=== PATIENT | female | born 1990 | race Caucasian/White ===

== ENCOUNTER 2017-12-24 23:38 | Emergency (ER) | payer MEDICAID, OTHER ==
[~2017-12-24] VITALS: Ht 157.5 cm; Wt 80.0 kg
[2017-12-25 02:46] LABS: BASOPHILS % 0.6 % (0.0-2.0); EOSINOPHILS % 1.4 % (0.0-5.0); HEMATOCRIT. 38.6 % (36.0-48.0); HEMOGLOBIN. 13.2 g/dL (12.0-16.0); LYMPHOCYTES % 28.4 % (20.0-50.0); MEAN CORPUSCULAR HEMOGLOBIN 30.5 pg (28.0-32.0); MEAN PLATELET VOLUME 9.1 fl (7.4-10.4); MONOCYTES % 9.9 % (2.0-8.0); NEUTROPHILS % 59.7 % (40.0-76.0); PLATELET 246 x1000/uL (130-400); RED BLOOD CELL COUNT 4.33 mill/uL (4.2-5.4); RED CELL DISTRIBUTION WIDTH 13.2 % (11.6-14.6)
[2017-12-25 02:51] LABS: CHLORIDE 105 mEq/L (98-107)
[2017-12-25 04:18] LABS: CLARITY URINE CLEAR (CLEAR); COLOR URINE YELLOW (YELLOW); KETONES URINE NEGATIVE (NEGATIVE); LEUKOCYTE ESTERASE URINE NEGATIVE (NEGATIVE); NITRITE URINE NEGATIVE (NEGATIVE); OCCULT BLOOD URINE NEGATIVE (NEGATIVE); PROTEIN URINE NEGATIVE (NEGATIVE); SPECIFIC GRAVITY URINE 1.028 (1.005-1.030)
[2017-12-25 05:37] VITALS: BP 126/80
== END 2017-12-25 05:48 | disposition home or self-care (01) ==
LOC: ER 12-25 00:02
DX: R53.1 Weakness (principal); M79.1 Myalgia; Z88.5 Allergy status to narcotic agent; Z98.890 Other specified postprocedural states
CPT/HCPCS: 36415; 71045; 80053; 81003; 81025; 83880; 84443; 84484; 85025; 93005; 99285

== ENCOUNTER 2019-03-14 12:00 | Emergency (ER) | payer MEDICAID ==
[~2019-03-14] VITALS: Ht 154.9 cm; Wt 80.0 kg
[2019-03-14] MEDS ORDERED: MECLIZINE 25MG TABLET PO STA (12:41)
[2019-03-14] MEDS ORDERED: SODIUM CHLORIDE 0.9% 1,000 ML IV ONE (12:45)
[2019-03-14] MEDS ORDERED: KETOROLAC 30MG/ML VIAL IV ONE (12:45)
[2019-03-14 13:14] LABS: CLARITY URINE CLOUDY (CLEAR); COLOR URINE YELLOW (YELLOW); KETONES URINE NEGATIVE (NEGATIVE); LEUKOCYTE ESTERASE URINE NEGATIVE (NEGATIVE); NITRITE URINE NEGATIVE (NEGATIVE); OCCULT BLOOD URINE TRACE (NEGATIVE); PH URINE 6.5 (4.5-8.0); PROTEIN URINE NEGATIVE (NEGATIVE); SPECIFIC GRAVITY URINE 1.033 (1.005-1.030); UROBILINOGEN URINE 0.2 E.U./dL (0.2-1.0)
[2019-03-14 13:17] LABS: CHLORIDE 106 mEq/L (98-107)
[2019-03-14 13:19] LABS: BASOPHILS % 0.5 % (0.0-2.0); EOSINOPHILS % 1.2 % (0.0-5.0); HEMATOCRIT. 39.1 % (36.0-48.0); HEMOGLOBIN. 13.8 g/dL (12.0-16.0); MEAN CORPUSCULAR HEMOGLOBIN 31.5 pg (28.0-32.0); MEAN CORPUSCULAR VOLUME 89.5 fL (81.0-99.0); MEAN PLATELET VOLUME 9.1 fl (7.4-10.4); MONOCYTES % 8.2 % (2.0-8.0); NEUTROPHILS % 57.1 % (40.0-76.0); PLATELET 234 x1000/uL (130-400); RED BLOOD CELL COUNT 4.37 mill/uL (4.2-5.4); RED CELL DISTRIBUTION WIDTH 13.2 % (11.6-14.6)
[2019-03-14 15:10] VITALS: BP 100/65
== END 2019-03-14 15:12 | disposition home or self-care (01) ==
LOC: ER 12:00
DX: M54.5 Low back pain (principal); R42 Dizziness and giddiness; E78.00 Pure hypercholesterolemia, unspecified; Z88.5 Allergy status to narcotic agent; Z98.890 Other specified postprocedural states; Z82.49 Family history of ischemic heart disease and other diseases of the circulatory system
CPT/HCPCS: 36415; 80048; 81003; 81025; 85025; 93005; 96361; 96374; 99284; J1885; J7030; J8597

== ENCOUNTER 2019-09-23 09:22 | Emergency (ER) | payer MEDICAID ==
[~2019-09-23] VITALS: Ht 160 cm; Wt 70.0 kg
[2019-09-23 10:14] VITALS: BP 110/86
[2019-09-23] MEDS ORDERED: ONDANSETRON 4MG ODT PO STA (11:45)
[2019-09-23] MEDS ORDERED: NAPROXEN 250MG TABLET PO ONE (11:45)
[2019-09-23 12:17] LABS: BASOPHILS % 0.6 % (0.0-2.0); EOSINOPHILS % 0.5 % (0.0-5.0); HEMATOCRIT. 41.2 % (36.0-48.0); HEMOGLOBIN. 14.1 g/dL (12.0-16.0); LYMPHOCYTES % 30.6 % (20.0-50.0); MEAN CORPUSCULAR VOLUME 90.4 fL (81.0-99.0); MEAN PLATELET VOLUME 9.3 fl (7.4-10.4); NEUTROPHILS % 59.3 % (40.0-76.0); PLATELET 276 x1000/uL (130-400); RED BLOOD CELL COUNT 4.56 mill/uL (4.2-5.4); RED CELL DISTRIBUTION WIDTH 13.3 % (11.6-14.6)
[2019-09-23 12:26] LABS: CHLORIDE 106 mEq/L (98-107)
[2019-09-23 12:27] LABS: CLARITY URINE CLEAR (CLEAR); COLOR URINE YELLOW (YELLOW); KETONES URINE NEGATIVE (NEGATIVE); LEUKOCYTE ESTERASE URINE NEGATIVE (NEGATIVE); NITRITE URINE NEGATIVE (NEGATIVE); OCCULT BLOOD URINE NEGATIVE (NEGATIVE); PROTEIN URINE NEGATIVE (NEGATIVE); SPECIFIC GRAVITY URINE 1.019 (1.005-1.030); UROBILINOGEN URINE 0.2 E.U./dL (0.2-1.0)
[2019-09-23 12:43] LABS: *AMPHETAMINES SCREEN URINE NEGATIVE (NEGATIVE); *BARBITURATES SCREEN URINE NEGATIVE (NEGATIVE); *BENZODIAZEPINES SCREEN URINE NEGATIVE (NEGATIVE); *COCAINE SCREEN URINE NEGATIVE (NEGATIVE); METHADONE URINE SCREEN NEGATIVE (NEGATIVE); OPIATES URINE SCREEN NEGATIVE (NEGATIVE)
[2019-09-23 12:44] LABS: CANNABINOID URINE SCREEN NEGATIVE (NEGATIVE); PHENCYCLIDINE URINE SCREEN NEGATIVE (NEGATIVE)
== END 2019-09-23 13:49 | disposition home or self-care (01) ==
LOC: ER 09:22
DX: R51 Headache (principal); I10 Essential (primary) hypertension; Z88.6 Allergy status to analgesic agent
CPT/HCPCS: 36415; 80048; 80305; 81003; 81025; 85025; 99283; Q0162

== ENCOUNTER 2020-12-18 10:56 | Emergency (ER) | payer MEDICAID ==
[~2020-12-18] VITALS: Ht 152.4 cm; Wt 78.0 kg
[2020-12-18 10:59] VITALS: BP 122/69
[2020-12-18] MEDS ORDERED: IBUPROFEN 600MG TABLET PO ONE (12:45)
[2020-12-18 14:43] LABS: CLARITY URINE CLEAR (CLEAR); COLOR URINE YELLOW (YELLOW); KETONES URINE NEGATIVE (NEGATIVE); LEUKOCYTE ESTERASE URINE NEGATIVE (NEGATIVE); NITRITE URINE NEGATIVE (NEGATIVE); OCCULT BLOOD URINE NEGATIVE (NEGATIVE); PH URINE 7.5 (4.5-8.0); PROTEIN URINE NEGATIVE (NEGATIVE); SPECIFIC GRAVITY URINE 1.025 (1.005-1.030); UROBILINOGEN URINE 0.2 E.U./dL (0.2-1.0)
[2020-12-18] MEDS ORDERED: NAPR-681 MT (15:19)
== END 2020-12-18 15:44 | disposition home or self-care (01) ==
LOC: ER 10:56
DX: G89.29 Other chronic pain (principal); M54.5 Low back pain; E78.00 Pure hypercholesterolemia, unspecified; Z88.6 Allergy status to analgesic agent; Z98.890 Other specified postprocedural states
CPT/HCPCS: 72100; 81003; 81025; 99284; Z7610

== ENCOUNTER 2021-06-10 12:48 | Emergency (ER) | payer MEDICAID ==
[~2021-06-10] VITALS: Ht 157.5 cm; Wt 77.0 kg
[~2021-06-10 12:48] MED LIST: NAPR-681 MT
[2021-06-10 14:50] VITALS: BP 116/80
== END 2021-06-10 14:51 | disposition home or self-care (01) ==
LOC: ER 12:48
DX: S63.91XA Sprain of unspecified part of right wrist and hand, initial encounter (principal); Z88.5 Allergy status to narcotic agent; Z98.890 Other specified postprocedural states; Y07.01 Husband, perpetrator of maltreatment and neglect; Y08.89XA Assault by other specified means, initial encounter; Y93.89 Activity, other specified; Y92.018 Other place in single-family (private) house as the place of occurrence of the external cause
CPT/HCPCS: 73090; 73130; 99284

== ENCOUNTER 2023-03-25 18:36 | Emergency (ER) | payer MEDICAID, OTHER ==
[~2023-03-25] VITALS: Ht 165.1 cm; Wt 78.0 kg
[2023-03-25 18:59] VITALS: O2SAT 100
[2023-03-25 19:31] LABS: BASOPHILS % 0.7 % (0.0-2.0); EOSINOPHILS % 3.4 % (0.0-5.0); HEMOGLOBIN. 12.8 g/dL (12.0-16.0); LYMPHOCYTES % 31.8 % (20.0-50.0); MEAN CORPUSCULAR HEMOGLOBIN 31.1 pg (28.0-32.0); MEAN CORPUSCULAR HGB CONC 34.5 g/dL (31.0-37.0); MEAN CORPUSCULAR VOLUME 90.1 fL (81.0-99.0); MEAN PLATELET VOLUME 9.6 fl (7.4-10.4); MONOCYTES % 9.5 % (2.0-8.0); NEUTROPHILS % 54.6 % (40.0-76.0); PLATELET 257 x1000/uL (130-400); RED CELL DISTRIBUTION WIDTH 13.3 % (11.6-14.6); WHITE BLOOD COUNT 6.8 x1000/uL (4.5-11.0)
[2023-03-25 19:43] LABS: CHLORIDE 108 mEq/L (98-107); INDEX HEMOLYSI 1 (1-3); INDEX ICTERIC 1 (1-4); INDEX LIPEMIC 1 (1-3); SODIUM 138 mEq/L (136-145)
[2023-03-25 19:51] LABS: ALANINE AMINOTRANSFERASE 40 IU/L (13-61); ALBUMIN 3.9 g/dL (3.4-5.0); ASPARTATE AMINOTRANSFERASE 22 IU/L (15-37); BILIRUBIN TOTAL 0.3 mg/dL (0.1-1.0); CALCIUM 9.2 mg/dL (8.5-10.1); CARBON DIOXIDE 26 mEq/L (21-32); CREATININE 0.6 mg/dL (0.6-1.3); GLUCOSE 107 mg/dL (70-105); PROTEIN TOTAL 7.6 g/dL (6.0-8.3); UREA NITROGEN BLOOD 15 mg/dL (7-21)
[2023-03-25 23:51] LABS: HCG SCREEN NEGATIVE
[2023-03-26 00:28] LABS: CLARITY URINE CLEAR (CLEAR); COLOR URINE YELLOW (YELLOW); GLUCOSE URINE NEGATIVE (NEGATIVE); KETONES URINE NEGATIVE (NEGATIVE); LEUKOCYTE ESTERASE URINE NEGATIVE (NEGATIVE); NITRITE URINE NEGATIVE (NEGATIVE); OCCULT BLOOD URINE NEGATIVE (NEGATIVE); PROTEIN URINE NEGATIVE (NEGATIVE); SPECIFIC GRAVITY URINE 1.026 (1.005-1.030)
[2023-03-26 01:25] VITALS: BP 119/78; PULSE 82; RESP 14; TEMP 98.2
== END 2023-03-26 01:34 | disposition home or self-care (01) ==
LOC: ER 18:36
DX: B34.9 Viral infection, unspecified (principal); Z88.5 Allergy status to narcotic agent
CPT/HCPCS: 36415; 80053; 81003; 84703; 85025; 93005; 99284

== ENCOUNTER 2023-05-09 12:45 | Emergency (ER) | payer MEDICAID, OTHER ==
[~2023-05-09] VITALS: Ht 160 cm; Wt 65.0 kg
[2023-05-09 12:54] VITALS: O2SAT 100
[2023-05-09] MEDS ORDERED: LIDOCAINE HCL/EPINEPHRINE 1%-EPI 1:100,000 20 ML VIAL INFIL ONE (13:00)
[2023-05-09] MEDS ORDERED: BACITRACIN ZINC OINT UDPKT TOP ONE (13:00)
[2023-05-09] MEDS ORDERED: HYDROCODONE/ACETAMINOPHEN 5/325MG TABLET PO ONE (13:00)
[2023-05-09] MEDS ORDERED: TETANUS, DIPHTHERIA, PERTUSSIS VAC/PF 0.5ML (>10YR OLD) IM ONE (13:00)
[2023-05-09] MEDS ORDERED: CEPH500T MT (14:39)
[2023-05-09] MEDS ORDERED: IBUP-2029 MT (14:39)
[2023-05-09 15:21] VITALS: BP 111/68; PULSE 68; RESP 16; TEMP 98.5
== END 2023-05-09 15:24 | disposition home or self-care (01) ==
LOC: ER 12:45
DX: S61.411A Laceration without foreign body of right hand, initial encounter (principal); Z98.890 Other specified postprocedural states; W26.8XXA Contact with other sharp object(s), not elsewhere classified, initial encounter; Y93.89 Activity, other specified; Y92.89 Other specified places as the place of occurrence of the external cause; Y99.8 Other external cause status
CPT/HCPCS: 90715; 12002; 90471; 99283; J3490; Z7610

== ENCOUNTER 2024-03-12 03:39 | Emergency (ER) | payer MEDICAID, OTHER ==
[~2024-03-12] VITALS: Ht 157.5 cm; Wt 81.0 kg
[~2024-03-12 03:39] MED LIST changes: +CEPH500T MT; +IBUP-2029 MT
[2024-03-12 03:41] VITALS: O2SAT 98
[2024-03-12 04:33] LABS: BASOPHILS % 0.8 % (0.0-2.0); EOSINOPHILS % 1.7 % (0.0-5.0); HEMATOCRIT. 38.3 % (36.0-48.0); HEMOGLOBIN. 12.9 g/dL (12.0-16.0); LYMPHOCYTES % 33.8 % (20.0-50.0); MEAN CORPUSCULAR HGB CONC 33.6 g/dL (31.0-37.0); MEAN CORPUSCULAR VOLUME 92.3 fL (81.0-99.0); MEAN PLATELET VOLUME 8.5 fl (7.4-10.4); MONOCYTES % 7.6 % (2.0-8.0); NEUTROPHILS % 56.1 % (40.0-76.0); PLATELET 294 x1000/uL (130-400); RED BLOOD CELL COUNT 4.14 mill/uL (4.2-5.4); RED CELL DISTRIBUTION WIDTH 13.1 % (11.6-14.6)
[2024-03-12] MEDS: KETOROLAC 30MG/ML VIAL IV STA (04:35)
[2024-03-12 04:46] LABS: CHLORIDE 106 mEq/L (98-107); POTASSIUM 3.5 mEq/L (3.5-5.1)
[2024-03-12 04:47] LABS: SODIUM 137 mEq/L (136-145)
[2024-03-12 04:48] LABS: CALCIUM 9.2 mg/dL (8.7-10.4); CARBON DIOXIDE 24 mEq/L (21-32)
[2024-03-12 04:53] LABS: CREATININE 0.6 mg/dL (0.6-1.0); GLUCOSE 99 mg/dL (70-105); UREA NITROGEN BLOOD 17 mg/dL (9-23)
[2024-03-12 04:55] LABS: TROPONIN I HIGH SENSITIVITY < 4 ng/L (3.0-34)
[2024-03-12 05:02] LABS: HCG SCREEN NEGATIVE
[2024-03-12 06:39] VITALS: TEMP 98.2
[2024-03-12] MEDS ORDERED: KETOROLAC 30MG/ML VIAL IV NR (06:45)
[2024-03-12 07:52] LABS: TROPONIN I HIGH SENSITIVITY < 4 ng/L (3.0-34)
[2024-03-12 08:20] VITALS: BP 127/87; PULSE 70; RESP 14
== END 2024-03-12 08:43 | disposition home or self-care (01) ==
LOC: ER 03:39
DX: M94.0 Chondrocostal junction syndrome [Tietze] (principal); Z98.890 Other specified postprocedural states
CPT/HCPCS: 80048; 84703; 85025; 85379; 84484; 36415; 71045; 99284; Z7610

== ENCOUNTER 2024-05-01 23:45 | Emergency (ER) | payer MEDICAID ==
[~2024-05-01] VITALS: Ht 154.9 cm; Wt 80.0 kg
[2024-05-02 00:26] VITALS: O2SAT 100
[2024-05-02 00:46] LABS: BASOPHILS % 0.4 % (0.0-2.0); HEMATOCRIT. 38.3 % (36.0-48.0); HEMOGLOBIN. 13.1 g/dL (12.0-16.0); LYMPHOCYTES % 30.4 % (20.0-50.0); MEAN CORPUSCULAR HEMOGLOBIN 31.7 pg (28.0-32.0); MEAN CORPUSCULAR HGB CONC 34.3 g/dL (31.0-37.0); MEAN CORPUSCULAR VOLUME 92.4 fL (81.0-99.0); MEAN PLATELET VOLUME 8.8 fl (7.4-10.4); MONOCYTES % 7.8 % (2.0-8.0); NEUTROPHILS % 60.4 % (40.0-76.0); PLATELET 305 x1000/uL (130-400); RED BLOOD CELL COUNT 4.14 mill/uL (4.2-5.4); RED CELL DISTRIBUTION WIDTH 13.3 % (11.6-14.6); WHITE BLOOD COUNT 8.6 x1000/uL (4.5-11.0)
[2024-05-02 00:47] LABS: CLARITY URINE CLEAR (CLEAR); COLOR URINE YELLOW (YELLOW); GLUCOSE URINE NEGATIVE (NEGATIVE); KETONES URINE NEGATIVE (NEGATIVE); LEUKOCYTE ESTERASE URINE NEGATIVE (NEGATIVE); NITRITE URINE NEGATIVE (NEGATIVE); OCCULT BLOOD URINE NEGATIVE (NEGATIVE); PH URINE 5.5 (4.5-8.0); PROTEIN URINE NEGATIVE (NEGATIVE); SPECIFIC GRAVITY URINE 1.034 (1.005-1.030); UROBILINOGEN URINE 0.2 E.U./dL (0.2-1.0)
[2024-05-02 00:51] LABS: CARBON DIOXIDE 26 mEq/L (21-32); CHLORIDE 106 mEq/L (98-107); POTASSIUM 3.5 mEq/L (3.5-5.1); SODIUM 138 mEq/L (136-145)
[2024-05-02 00:52] LABS: CALCIUM 9.8 mg/dL (8.7-10.4)
[2024-05-02 00:56] LABS: CREATININE 0.7 mg/dL (0.6-1.0)
[2024-05-02 00:57] LABS: GLUCOSE 93 mg/dL (70-105); UREA NITROGEN BLOOD 16 mg/dL (9-23)
[2024-05-02 00:58] LABS: ALANINE AMINOTRANSFERASE 49 IU/L (10-49); ASPARTATE AMINOTRANSFERASE 30 IU/L (<34)
[2024-05-02 00:59] LABS: BILIRUBIN DIRECT 0.1 mg/dL (<=3.0); BILIRUBIN TOTAL 0.5 mg/dL (0.1-1.0)
[2024-05-02 01:04] LABS: HCG SCREEN NEGATIVE
[2024-05-02] MEDS: ONDANSETRON 4MG ODT PO ONE (01:40)
[2024-05-02] MEDS: MAGNESIUM/ALUMINUM HYDROXIDE/SIMETHICONE 30ML UDC PO ONE (01:40)
[2024-05-02] MEDS ORDERED: NAPR-1176 MT (02:40)
[2024-05-02 03:00] VITALS: BP 117/68; PULSE 69; RESP 16; TEMP 36.61404; O2SAT 99
== END 2024-05-02 03:49 | disposition home or self-care (01) ==
LOC: ER 23:45
DX: R19.7 Diarrhea, unspecified (principal); E78.00 Pure hypercholesterolemia, unspecified; F41.9 Anxiety disorder, unspecified; Z88.5 Allergy status to narcotic agent; Z98.890 Other specified postprocedural states
CPT/HCPCS: 99284; 74176; 80076; 80048; 81003; 84703; 83690; 85025; 36415; Q0162

== ENCOUNTER 2024-07-27 18:01 | Emergency (ER) | payer MEDICAID ==
[~2024-07-27] VITALS: Ht 154.9 cm; Wt 77.0 kg
[~2024-07-27 18:01] MED LIST changes: +NAPR-1176 MT
[2024-07-27 18:03] VITALS: O2SAT 98
[2024-07-27 18:07] VITALS: BP 150/87; PULSE 90; RESP 16; TEMP 98.6; O2SAT 100
[2024-07-27 19:57] LABS: CHLORIDE 104 mEq/L (98-107); HEMATOCRIT 41.3 % (36.0-48.0); HEMOGLOBIN 13.7 g/dL (12.0-16.0); MEAN CORPUSCULAR HEMOGLOBIN 30.9 pg (28.0-32.0); MEAN CORPUSCULAR HGB CONC 33.3 g/dL (31.0-37.0); MEAN CORPUSCULAR VOLUME 92.9 fL (81.0-99.0); PLATELET 314 x1000/uL (130-400); POTASSIUM 3.9 mEq/L (3.5-5.1); RED BLOOD CELL COUNT 4.44 mill/uL (4.2-5.4); RED CELL DISTRIBUTION WIDTH 13.4 % (11.6-14.6); SODIUM 137 mEq/L (136-145); WHITE BLOOD COUNT 10.3 x1000/uL (4.5-11.0)
[2024-07-27 19:58] LABS: CALCIUM 9.8 mg/dL (8.7-10.4); CARBON DIOXIDE 23 mEq/L (21-32)
[2024-07-27 20:03] LABS: CREATININE 0.9 mg/dL (0.6-1.0); GLUCOSE 93 mg/dL (70-105); UREA NITROGEN BLOOD 14 mg/dL (9-23)
[2024-07-27 20:24] LABS: CLARITY URINE CLEAR (CLEAR); COLOR URINE YELLOW (YELLOW); GLUCOSE URINE NEGATIVE (NEGATIVE); KETONES URINE NEGATIVE (NEGATIVE); LEUKOCYTE ESTERASE URINE NEGATIVE (NEGATIVE); NITRITE URINE NEGATIVE (NEGATIVE); OCCULT BLOOD URINE NEGATIVE (NEGATIVE); PH URINE 6.5 (4.5-8.0); PROTEIN URINE NEGATIVE (NEGATIVE); SPECIFIC GRAVITY URINE 1.005 (1.005-1.030); UROBILINOGEN URINE 0.2 E.U./dL (0.2-1.0)
[2024-07-27] MEDS: KETOROLAC 15MG/ML VIAL IV ONE (20:40)
[2024-07-27] MEDS ORDERED: IBUP-2029 MT (20:45)
== END 2024-07-27 22:32 | disposition home or self-care (01) ==
LOC: ER 18:01
DX: M25.562 Pain in left knee (principal); M25.561 Pain in right knee; M79.641 Pain in right hand; M79.642 Pain in left hand; M25.521 Pain in right elbow; M25.522 Pain in left elbow; E78.00 Pure hypercholesterolemia, unspecified; I10 Essential (primary) hypertension; Z79.1 Long term (current) use of non-steroidal anti-inflammatories (NSAID); Z88.5 Allergy status to narcotic agent
CPT/HCPCS: 36415; 80048; 81003; 81025; 82330; 85027; 99283

== ENCOUNTER 2024-11-03 14:33 | Emergency (ER) | payer MEDICAID ==
[~2024-11-03] VITALS: Ht 162.6 cm; Wt 60.0 kg
[2024-11-03 14:35] VITALS: BP 129/71; PULSE 98; RESP 18; TEMP 36.6; O2SAT 98
[2024-11-03 16:16] LABS: CHLORIDE 107 mEq/L (98-107); POTASSIUM 3.5 mEq/L (3.5-5.1); SODIUM 141 mEq/L (136-145)
[2024-11-03 16:17] LABS: CALCIUM 9.9 mg/dL (8.7-10.4); CARBON DIOXIDE 29 mEq/L (21-32)
[2024-11-03 16:22] LABS: CREATININE 0.7 mg/dL (0.6-1.0); GLUCOSE 103 mg/dL (70-105); UREA NITROGEN BLOOD 10 mg/dL (9-23)
[2024-11-03 16:23] LABS: ETHANOL BLOOD < 10 mg/dL (<10)
[2024-11-03 16:29] LABS: TROPONIN I HIGH SENSITIVITY < 4 ng/L (3.0-34)
[2024-11-03 16:37] LABS: BASOPHILS % 0.4 % (0.0-2.0); EOSINOPHILS % 0.5 % (0.0-5.0); HEMATOCRIT. 38.6 % (36.0-48.0); HEMOGLOBIN. 13.1 g/dL (12.0-16.0); LYMPHOCYTES % 10.8 % (20.0-50.0); MEAN CORPUSCULAR HEMOGLOBIN 30.4 pg (28.0-32.0); MEAN CORPUSCULAR HGB CONC 33.9 g/dL (31.0-37.0); MEAN CORPUSCULAR VOLUME 89.5 fL (81.0-99.0); MEAN PLATELET VOLUME 9.4 fl (7.4-10.4); MONOCYTES % 7.4 % (2.0-8.0); NEUTROPHILS % 80.9 % (40.0-76.0); PLATELET 271 x1000/uL (130-400); RED BLOOD CELL COUNT 4.31 mill/uL (4.2-5.4); RED CELL DISTRIBUTION WIDTH 12.7 % (11.6-14.6); WHITE BLOOD COUNT 10.8 x1000/uL (4.5-11.0)
[2024-11-03 16:47] LABS: HCG SCREEN NEGATIVE
== END 2024-11-03 18:20 | disposition home or self-care (01) ==
LOC: ER 14:33
DX: R55 Syncope and collapse (principal); F41.9 Anxiety disorder, unspecified; Z79.1 Long term (current) use of non-steroidal anti-inflammatories (NSAID); E78.00 Pure hypercholesterolemia, unspecified; Z79.899 Other long term (current) drug therapy; Z98.890 Other specified postprocedural states; Z88.5 Allergy status to narcotic agent
CPT/HCPCS: 36415; 80048; 80320; 84484; 84703; 85025; 93005; 99284; G0480

== ENCOUNTER 2025-02-08 16:17 | Emergency (ER) | payer MEDICAID ==
[~2025-02-08] VITALS: Ht 154.9 cm; Wt 75.0 kg
[2025-02-08 16:24] VITALS: O2SAT 98
[2025-02-08 17:07] LABS: CLARITY URINE CLEAR (CLEAR); COLOR URINE YELLOW (YELLOW); GLUCOSE URINE NEGATIVE (NEGATIVE); KETONES URINE NEGATIVE (NEGATIVE); LEUKOCYTE ESTERASE URINE NEGATIVE (NEGATIVE); NITRITE URINE NEGATIVE (NEGATIVE); OCCULT BLOOD URINE NEGATIVE (NEGATIVE); PH URINE >=9.0 (4.5-8.0); PROTEIN URINE 1+ (NEGATIVE); SPECIFIC GRAVITY URINE 1.023 (1.005-1.030); UROBILINOGEN URINE 1.0 E.U./dL (0.2-1.0)
[2025-02-08 17:29] LABS: BACTERIA URINE 1+; RBC URINE 0-2 /hpf (0-2); SQUAMOUS EPITHELIAL CELL URINE 1+ /lpf (RARE/1+); WBC URINE 0-2 /hpf (0-2)
[2025-02-08 17:42] LABS: BASOPHILS % 0.6 % (0.0-2.0); EOSINOPHILS % 0.5 % (0.0-5.0); HEMATOCRIT. 39.0 % (36.0-48.0); HEMOGLOBIN. 13.2 g/dL (12.0-16.0); LYMPHOCYTES % 15.9 % (20.0-50.0); MEAN PLATELET VOLUME 9.3 fl (7.4-10.4); MONOCYTES % 6.9 % (2.0-8.0); NEUTROPHILS % 76.1 % (40.0-76.0); PLATELET 290 x1000/uL (130-400); RED BLOOD CELL COUNT 4.38 mill/uL (4.2-5.4); RED CELL DISTRIBUTION WIDTH 12.7 % (11.6-14.6)
[2025-02-08 17:55] LABS: HCG SCREEN NEGATIVE
[2025-02-08 17:56] LABS: CREATININE 0.7 mg/dL (0.6-1.0)
[2025-02-08 17:57] LABS: UREA NITROGEN BLOOD 10 mg/dL (9-23)
[2025-02-08 17:58] LABS: ASPARTATE AMINOTRANSFERASE 17 IU/L (<34)
[2025-02-08 17:59] LABS: B-HCG QUANTITATIVE 1 mIU/mL (<6); BILIRUBIN DIRECT 0.2 mg/dL (<=3.0); BILIRUBIN TOTAL 0.8 mg/dL (0.1-1.0); PROTEIN TOTAL 7.4 g/dL (6.0-8.3)
[2025-02-08 18:00] VITALS: TEMP 37.6
[2025-02-08 18:03] VITALS: TEMP 99.7
[2025-02-08] MEDS: ACETAMINOPHEN 500MG TABLET PO ONE (18:03)
[2025-02-08] MEDS: SODIUM CHLORIDE 0.9% 1,000 ML IV ONE (18:10)
[2025-02-08] MEDS ORDERED: KETOROLAC 30MG/ML VIAL IV ONE (19:45)
[2025-02-08] MEDS ORDERED: CEFTRIAXONE SODIUM 500MG VIAL IM SCH (20:30)
[2025-02-08] MEDS ORDERED: DOXY100T2 MT (22:27)
[2025-02-08] MEDS ORDERED: IOHEXOL-300 100 ML BOTTLE ONE (22:50)
[2025-02-09] VITALS: BP 123/71; PULSE 60; RESP 12; O2SAT 99
== END 2025-02-09 00:19 | disposition home or self-care (01) ==
LOC: ER 16:17
DX: R10.30 Lower abdominal pain, unspecified (principal); F41.9 Anxiety disorder, unspecified; R10.2 Pelvic and perineal pain; Z20.2 Contact with and (suspected) exposure to infections with a predominantly sexual mode of transmission; E78.00 Pure hypercholesterolemia, unspecified; Z88.5 Allergy status to narcotic agent; Z79.1 Long term (current) use of non-steroidal anti-inflammatories (NSAID); Z79.899 Other long term (current) drug therapy
CPT/HCPCS: 80076; 80048; 81003; 81025; 84703; 84702; 83690; 85025; 86850; 86900; 86901; 36415; 74177; 76830; 76856; 99285; Q9967; J7030; Z7610 ×2; A4606; J1885

== ENCOUNTER 2025-04-20 22:25 | Emergency (ER) | payer MEDICAID ==
[~2025-04-20] VITALS: Ht 162.6 cm; Wt 82.0 kg
[~2025-04-20 22:25] MED LIST changes: +DOXY100T2 MT; +IBUP-1455 MT; -IBUP-2029 MT
[2025-04-20 22:35] VITALS: O2SAT 99
[2025-04-20 23:02] LABS: BASOPHILS % 0.4 % (0.0-2.0); EOSINOPHILS % 0.2 % (0.0-5.0); HEMATOCRIT. 38.3 % (36.0-48.0); HEMOGLOBIN. 13.2 g/dL (12.0-16.0); LYMPHOCYTES % 12.2 % (20.0-50.0); MEAN PLATELET VOLUME 8.5 fl (7.4-10.4); MONOCYTES % 6.1 % (2.0-8.0); NEUTROPHILS % 81.1 % (40.0-76.0); PLATELET 264 x1000/uL (130-400); RED BLOOD CELL COUNT 4.25 mill/uL (4.2-5.4); RED CELL DISTRIBUTION WIDTH 13.4 % (11.6-14.6)
[2025-04-20 23:13] LABS: HCG SCREEN NEGATIVE
[2025-04-20 23:16] LABS: CREATININE 0.8 mg/dL (0.6-1.0); UREA NITROGEN BLOOD 14 mg/dL (9-23)
[2025-04-20 23:18] LABS: ASPARTATE AMINOTRANSFERASE 21 IU/L (<34); BILIRUBIN DIRECT 0.1 mg/dL (<=3.0); BILIRUBIN TOTAL 0.7 mg/dL (0.1-1.0); PROTEIN TOTAL 7.5 g/dL (6.0-8.3)
[2025-04-20 23:19] LABS: ETHANOL BLOOD < 10 mg/dL (<10)
[2025-04-21] MEDS: POTASSIUM CHLORIDE 20MEQ/PACKET PO NR (00:16)
[2025-04-21] MEDS: FAMOTIDINE 20MG TABLET PO NR (00:16)
[2025-04-21] MEDS: ONDANSETRON 4MG ODT PO NR (00:16)
[2025-04-21 00:37] LABS: CLARITY URINE CLEAR (CLEAR); COLOR URINE YELLOW (YELLOW); GLUCOSE URINE NEGATIVE (NEGATIVE); KETONES URINE TRACE (NEGATIVE); LEUKOCYTE ESTERASE URINE NEGATIVE (NEGATIVE); NITRITE URINE NEGATIVE (NEGATIVE); OCCULT BLOOD URINE TRACE (NEGATIVE); PH URINE 5.0 (4.5-8.0); PROTEIN URINE TRACE (NEGATIVE); SPECIFIC GRAVITY URINE 1.034 (1.005-1.030); UROBILINOGEN URINE 0.2 E.U./dL (0.2-1.0)
[2025-04-21] MEDS ORDERED: ONDA4TAB50 MT (00:45)
[2025-04-21] MEDS ORDERED: DICY-18 MT (00:45)
[2025-04-21 00:56] LABS: *AMPHETAMINES SCREEN URINE NEGATIVE (NEGATIVE)
[2025-04-21 00:57] LABS: *BARBITURATES SCREEN URINE NEGATIVE (NEGATIVE); *BENZODIAZEPINES SCREEN URINE NEGATIVE (NEGATIVE); *COCAINE SCREEN URINE NEGATIVE (NEGATIVE); CANNABINOID URINE SCREEN NEGATIVE (NEGATIVE); ECSTASY MDMA SCREEN URINE NEGATIVE (NEGATIVE); METHADONE URINE SCREEN NEGATIVE (NEGATIVE); OPIATES URINE SCREEN NEGATIVE (NEGATIVE); PHENCYCLIDINE URINE SCREEN NEGATIVE (NEGATIVE)
[2025-04-21 00:58] VITALS: BP 120/80; PULSE 95; RESP 14; TEMP 36.8; O2SAT 98
[2025-04-21 01:40] LABS: BACTERIA URINE TRACE; RBC URINE NONE SEEN /hpf (0-2); SQUAMOUS EPITHELIAL CELL URINE 2+ /lpf (RARE/1+); WBC URINE 0-2 /hpf (0-2)
== END 2025-04-21 01:03 | disposition home or self-care (01) ==
LOC: ER 22:25
DX: R10.13 Epigastric pain (principal); R19.7 Diarrhea, unspecified; E87.6 Hypokalemia; E03.9 Hypothyroidism, unspecified; Z88.5 Allergy status to narcotic agent; Z79.899 Other long term (current) drug therapy
CPT/HCPCS: 36415; 76705; 80048; 80076; 80305; 80320; 81003; 84703; 85025; 99284; Q0162; G0480